=== PATIENT | female | born 1990 | race Caucasian/White ===

== ENCOUNTER 2018-11-10 22:17 | Emergency (ER) | payer OTHER ==
[~2018-11-10] VITALS: Ht 193 cm; Wt 90.7 kg
--- NOTE | 2018-11-10 22:26 | NUR ---
ED Nurse Note: pt walked in due to cough x 1 month and runny nose and earache. Pt is AO x 4times, VSS, on room air no distress. ANGIED seen Pt at bedside.
[2018-11-10] MEDS ORDERED: RISPERDAL1 MG PO (22:30)
[2018-11-10] MEDS ORDERED: PAXIL10 MG ORAL (22:30)
[2018-11-10 22:57] VITALS: BP 123/82
[2018-11-10] MEDS ORDERED: PROMETHAZINE-C118 M1 ORAL (22:57)
[2018-11-10] MEDS ORDERED: AMOXICILLIN500 MG ORAL (22:57)
[2018-11-10 23:04] VITALS: BP 123/82
--- NOTE | 2018-11-10 23:05 | NUR ---
ER DISCHARGE NOTE: Patient is cleared to be discharged per ERMD, pt is aox4, on room air, with stable vital signs. pt was given dc and prescription instructions, pt was able to verbalize understanding, pt id band removed without complications. pt is able to ambulate with steady gait. pt took all belongings.
--- NOTE | 2018-11-11 03:00 | Emergency Room Report ---
History of Present Illness General Chief Complaint: Upper Respiratory Illness Source: Patient Present Illness HPI 28-year-old female presents ED for evaluation. States she's been experiencing cough runny nose and congestion 1 month. Cough is productive with greenish phlegm. States she's tried [id number] medications without relief. States is been no improvement in symptoms and getting worse. Denies fevers or chills. Denies sick contacts or recent travel. No other aggravating relieving factors. Denies any other associated symptoms Allergies: Coded Allergies: No Known Allergies (Unverified , 11/10/18) Patient History Past Medical History: psych hx Past Surgical History: none Pertinent Family History: none Social History: Denies: smoking, alcohol use, drug use Last Menstrual Period: oct Now: No : 0 Para: 0 Immunizations: UTD Reviewed Nursing Documentation: PMH: Agreed; PSxH: Agreed Nursing Documentation-PM Past Medical History: No History, Except For History Of Psychiatric Problem: Yes - depression Review of Systems All Other Systems: negative except mentioned in HPI Physical Exam Vital Signs Date Time Temp Pulse Resp B/P (MAP) Pulse Ox O2 Delivery O2 Flow Rate FiO2 11/10/18 22:25 98.2 100 16 110/82 95 Room Air Sp02 EP Interpretation: reviewed, normal General Appearance: no apparent distress, alert, GCS 15, non-toxic Head: normocephalic, atraumatic Eyes: bilateral eye normal inspection, bilateral eye PERRL ENT: hearing grossly normal, normal pharynx, no angioedema, normal voice Neck: full range of motion, supple/symm/no masses Respiratory: chest non-tender, lungs clear, normal breath sounds, speaking full sentences Cardiovascular #1: regular rate, rhythm, no edema Cardiovascular #2: 2+ carotid (R), 2+ carotid (L), 2+ radial (R), 2+ radial (L) , 2+ dorsalis pedis (R), 2+ dorsalis pedis (L) Gastrointestinal: normal bowel sounds, non tender, soft, non-distended, no guarding, no rebound Rectal: deferred Genitourinary: normal inspection, no CVA tenderness Musculoskeletal: back normal, gait/station normal, normal range of motion, non- tender Neurologic: alert, oriented x3, responsive, motor strength/tone normal, sensory intact, speech normal Psychiatric: judgement/insight normal, memory normal, mood/affect normal, no suicidal/homicidal ideation Reflexes: 3+ bicep (R), 3+ bicep (L), 3+ tricep (R), 3+ tricep (L), 3+ knee (R) , 3+ knee (L) Skin: normal color, no rash, warm/dry, well hydrated Lymphatic: no adenopathy Medical Decision Making Diagnostic Impression: Primary Impression: Atypical pneumonia ER Course Hospital Course 28-year-old female presents ED complaining of runny nose, congestion and cough x1 month Differential diagnoses include: URI, pharyngitis, otitis media, asthma Clinical course Patient placed on stretcher. After initial history, physical exam reveals a female in no acute distress. Bilateral TM unremarkable. No pharyngeal erythema. No tonsillar exudates. No lymphadenopathy. lungs clear. abdomen soft. discussed findings with patient. Appears viral however given persistence of symptoms without improvement with [id number] medications consideration for bacterial superinfection. We'll treat as atypical pneumonia. I'll discharge with antibiotics. Safe for discharge with close outpatient follow-up. I'll provide PMD referrals Diagnosis - atypical pneumonia Stable and discharged home with Rx amoxicillin, promethazine/codeine. Instructed to followup with PMD. Return to ED if symptoms recur or worsen Last Vital Signs Date Time Temp Pulse Resp B/P (MAP) Pulse Ox O2 Delivery O2 Flow Rate FiO2 11/10/18 23:04 98.5 97 17 123/82 97 Room Air Status: improved Disposition: HOME, SELF-CARE Condition: Stable Scripts Codeine/Promethazine Hcl* (PROMETHAZINE-CODEINE SYRUP*) 118 Ml Syrup 5 ML ORAL Q6H PRN for For Cough, #118 ML 0 Refills Prov: Joss Sanches MD 11/10/18 Amoxicillin* (AMOXIL*) 500 Mg Capsule 500 MG ORAL THREE TIMES A DAY, #21 CAP Prov: Joss Sanches MD 11/10/18 Referrals: NOT CHOSEN IPA/,REFERRING [facility]mmy Vilchis [facility]. [facility] Patient Instructions: Community-Acquired Pneumonia, Adult, Pldt-er-Ucid Joss Sanches MD Nov 11, 2018 03:00
== END 2018-11-10 23:30 | disposition home or self-care (01) ==
LOC: EMR 22:45
DX: J18.9 Pneumonia, unspecified organism (principal)
CPT/HCPCS: 99282

== ENCOUNTER 2020-02-25 19:33 | Emergency (ER) | payer MEDICAID, OTHER ==
[~2020-02-25] VITALS: Ht 193 cm; Wt 84.8 kg
[~2020-02-25 19:33] MED LIST: AMOXICILLIN500 MG ORAL; PAXIL10 MG ORAL; PROMETHAZINE-C118 M1 ORAL; RISPERDAL1 MG PO
[2020-02-25 19:37] VITALS: BP 94/59
--- NOTE | 2020-02-25 19:48 | Emergency Room Report ---
History of Present Illness General Chief Complaint: Upper Respiratory Illness Source: Patient Present Illness HPI Disclaimer: Please note that this report is being documented using [employer] technology. This can lead to erroneous entry secondary to incorrect interpretation by the dictating instrument. HPI: 29-year-old otherwise healthy female presents for evaluation of cough. The patient states she has had a nonproductive cough for approximately 1 week with subjective fevers. Denies vomiting, diarrhea, headache, chest pain, palpitations, significant shortness of breath. Patient has been around large crowds recently. No known contact with COVID-19 positive persons. Denies history of asthma. She states she gets recurrent upper respiratory tract infections. Did not take any medications prior to arrival. PMH: Denied PSH: Denied Allergies: Denied Social Hx: Active tobacco user Allergies: Coded Allergies: No Known Allergies (Unverified , 02/25/20) COVID-19 Screening Contact w/high risk pt: No Recent Travel to affected area: No Experienced COVID-19 symptoms?: Yes COVID-19 symptoms experienced: Cough COVID-19 Testing performed STAPLER MACHINE: No Patient History Last Menstrual Period: na Nursing Documentation-PMH Past Medical History: No Stated History Review of Systems All Other Systems: negative except mentioned in HPI Physical Exam Vital Signs Date Time Temp Pulse Resp B/P (MAP) Pulse Ox O2 Delivery O2 Flow Rate FiO2 02/25/20 19:28 98.8 98 18 94/59 (71) 98 Room Air General: Awake and alert, no acute distress HEENT: NC/AT. EOMI. Cardiovascular: RRR. S1 and S2 normal. No murmur appreciated Resp: Normal work of breathing. No cough, wheezing or crackles appreciated Skin: Intact. No abrasions, laceration or rash over the exposed skin MSK: Normal tone and bulk. Moving all extremities. No obvious deformity. Neuro: Awake and alert. Mentating appropriately. Medical Decision Making Diagnostic Impression: Primary Impression: Lower respiratory tract infection Additional Impression: Suspected 2019 novel coronavirus infection ER Course There is a 29-year-old female presenting for evaluation of cough and subjective fevers 1 week duration. Differential includes was not limited to viral respiratory syndrome, pneumonia, bronchitis, COVID-19 infection to name a few. X-ray is obtained to evaluate for pneumonia but no obvious infiltrate was identified. The patient is well-appearing with stable vital signs and no respiratory distress. I am concerned that the patient has been out in public recently in large crowds and may have contracted coronavirus. I will for her to outpatient testing. Also prescribe antitussive medication albuterol inhaler. She is stable for outpatient follow-up. I instructed the patient to self isolate and discussed reasons to return to the emergency department as well as need to follow-up with PMD. She was provided with resources on outpatient coronavirus testing. She understands and agrees with treatment plan was discharged home. Chest X-Ray Diagnostic Results Chest X-Ray Diagnostic Results : Chest X-Ray Ordered: Yes # of Views/Limited/Complete: 1 View Indication: Shortness of Breath EP Interpretation: Yes Interpretation: no consolidation, no effusion, no pneumothorax, no acute cardiopulmonary disease Impression: No acute disease Electronically Signed by: Electronically signed by Dr. Alton Thomas Last Vital Signs Date Time Temp Pulse Resp B/P (MAP) Pulse Ox O2 Delivery O2 Flow Rate FiO2 02/25/20 19:37 98 18 Room Air 02/25/20 19:37 98.8 94/59 98 Disposition: HOME, SELF-CARE Condition: Stable Scripts Albuterol Sulfate (VENTOLIN HFA) 18 Gm Hfa.aer.ad 1 PUFF INH EVERY 6 HOURS, #18 GM 0 Refills Prov: Alton Thomas MD 02/25/20 Promethazine Hcl* (PHENERGAN*) 25 Mg Tablet 25 MG ORAL Q6H, #15 TAB 0 Refills Prov: Alton Thomas MD 02/25/20 Alton Thomas MD Feb 25, 2020 19:48
[2020-02-25] MEDS ORDERED: VENTOLIN HFA18 GM INH (20:13)
[2020-02-25] MEDS ORDERED: PHENERGAN25 M1 ORAL (20:13)
[2020-02-25 20:15] VITALS: BP 100/60
--- NOTE | 2020-02-26 12:53 | Diagnostic Imaging Report ---
Indication: Cough Technique: XRAY Chest 1v Comparison: None Findings: Heart size and mediastinal contours are within normal limits for AP technique. There is no focal airspace consolidation, pneumothorax or pleural effusion. Mild scoliosis. Osseous structures demonstrate no acute abnormality. Impression: No radiographic evidence of acute cardiopulmonary disease. No focal airspace consolidation.
== END 2020-02-25 20:15 | disposition home or self-care (01) ==
LOC: EDBD 19:33 → MERGE 20:15 → EMR 20:15
DX: J22 Unspecified acute lower respiratory infection (principal); R05 Cough
CPT/HCPCS: 71045; Z7502; 99283

== ENCOUNTER 2020-05-27 15:40 | Emergency (ER) | payer OTHER ==
[~2020-05-27] VITALS: Ht 193 cm; Wt 86.2 kg
[~2020-05-27 15:40] MED LIST changes: +PHENERGAN25 M1 ORAL; +VENTOLIN HFA18 GM INH
[2020-05-27 15:52] VITALS: BP 107/63
--- NOTE | 2020-05-27 16:33 | Emergency Room Report ---
History of Present Illness General Chief Complaint: Pain Present Illness HPI 30-year-old female presents to the emergency department complaining of 6 out of 10 severity episodic pain in the left side of the neck x4 years. Patient reports that over the course of the last 2 months she is noticing it more f requently. Patient describes strong correlation with when she drinks and smokes. Patient states she has since ceased smoking as she believes it may be contributing to her symptoms. She denies fevers or chills. She denies pain with swallowing. She denies noticeable swelling. She denies neck stiffness. She denies headache. She denies personal or familial hx of Cancers or thyroid disorders. Pt. denies frequent infections or weak immune system. Allergies: Coded Allergies: No Known Allergies (Unverified , 11/10/18) COVID-19 Screening Contact w/high risk pt: No Experienced COVID-19 symptoms?: No COVID-19 Testing performed BUFF WHEEL FABRICATOR: No Patient History Past Medical History: see triage record Past Surgical History: none Pertinent Family History: none Last Menstrual Period: 05/19/20 Now: No Reviewed Nursing Documentation: PMH: Agreed; PSxH: Agreed Nursing Documentation-PMH Past Medical History: No Stated History Hx Cardiac Problems: No Hx Hypertension: No Hx Pacemaker: No Hx Asthma: No Hx COPD: No Hx Diabetes: No Hx Cancer: No Hx Gastrointestinal Problems: No Hx Dialysis: No History Of Psychiatric Problem: No Hx Neurological Problems: No Hx Cerebrovascular Accident: No Hx Seizures: No Review of Systems All Other Systems: negative except mentioned in HPI Physical Exam Vital Signs Date Time Temp Pulse Resp B/P (MAP) Pulse Ox O2 Delivery O2 Flow Rate FiO2 05/27/20 15:43 98.2 112 16 107/63 (78) 98 Sp02 EP Interpretation: reviewed, normal General Appearance: no apparent distress, alert, GCS 15, non-toxic Head: normocephalic, atraumatic Eyes: bilateral eye normal inspection, bilateral eye PERRL ENT: hearing grossly normal, normal voice Neck: full range of motion, other - Pt. has tenderness to palpation to the upper left scm, there are no palpable LAD, there is no palpable masses, no skin color changes. No bony ttp. NO stridor, no bruits Respiratory: chest non-tender, lungs clear, normal breath sounds, no respiratory distress, no accessory muscle use, no wheezing, speaking full sentences Cardiovascular #1: regular rate, rhythm Musculoskeletal: back normal, normal range of motion, gait/station normal, non- tender Neurologic: alert, motor strength/tone normal, oriented x3, sensory intact, responsive, speech normal Psychiatric: judgement/insight normal Skin: other - Pt. has tenderness to palpation to the upper left scm, there are no palpable LAD, there is no palpable masses, no skin color changes. No bony ttp. Lymphatic: no adenopathy Medical Decision Making PA Attestation Dr. Villafana is my supervising Physician whom patient management has been discussed with. Diagnostic Impression: Primary Impression: Nonspecific pain in the neck region ER Course 30-year-old female presents to the emergency department complaining of 6 out of 10 severity episodic pain in the left side of the neck x4 years. Patient reports that over the course of the last 2 months she is noticing it more frequently. Patient describes strong correlation with when she drinks and smokes. Patient states she has since ceased smoking as she believes it may be c ontributing to her symptoms. She denies fevers or chills. She denies pain with swallowing. She denies noticeable swelling. She denies neck stiffness. She denies headache. She denies personal or familial hx of Cancers or thyroid disorders. Pt. denies frequent infections or weak immune system. Ddx considered but are not limited to dissection, thyroiditis, lymphadenopathy, BUFF WHEEL FABRICATOR, strep, abscess just to name a few Vital signs: are WNL, pt. is afebrile. H&PE are most consistent with Episodic pain in the neck region on the left side. unable to illicit on palpation, No swelling or palpable mass. NO evidence of infection, FROM of Neck, no constitutional symptoms or personal/familial history of thyroid disorder. Patient is a current smoker so risk factor for neoplasm is present. Patient is nontoxic in appearance and in no acute distress. No evidence of acute impending airway compromise. dissection very unlikely given lack of risk factors and age. ORDERS: none required at this time, the diagnosis is clinical ED INTERVENTIONS: None required at this time. D/w pt. that an emergent condition is not identifiable based on her current presentation. I d/w pt. that this could represent cancer or thyroid disorder and needs to be followed up and evaluated by the appropriate specialists. D/w pt. that this needs to be done on an urgent basis until cancer can be excluded. -I do not identify an emergent condition at this time. With current presentation, pt. is stable for close outpatient follow up and conservative treatment. D/w pt. to return promptly to ED with worsening or new symptoms.- Pt. verbalizes' understanding and agreement with proposed treatment plan. DISCHARGE: At this time pt. is stable for d/c to home. Will provide printed patient care instructions, and any necessary prescriptions. Care plan and follow up instructions have been discussed with the patient prior to discharge. Last Vital Signs Date Time Temp Pulse Resp B/P (MAP) Pulse Ox O2 Delivery O2 Flow Rate FiO2 05/27/20 15:52 98.2 79 16 107/63 98 Disposition: HOME, SELF-CARE Condition: Stable Scripts Ibuprofen* (MOTRIN*) 600 Mg Tablet 600 MG ORAL THREE TIMES A DAY, #20 TAB Prov: Briana Perdomo 05/27/20 Referrals: NON PHYSICIAN (PCP) Ammy Lucio [facility] [place] Patient Instructions: Medical Screening Exam, Pain Without a Known Cause Additional Instructions: Take medications as directed. ~ ~ An emergent medical condition has not been identified based on this patients presentation, exam and any necessary testing/imaging. The patient is determined to be stable for outpatient follow-up and management of symptoms by a primary care provider. Follow up with an ENT ( ear, nose, THROAT) Specialist 3-5 days, --Please review list of primary care clinics, if you do not already have a primary care provider Return sooner to ED if new symptoms occur, or current symptoms become worse. - Please note that this Emergency Department Report was dictated using [employer] technology software, occasionally this can lead to erroneous entry secondary to interpretation by the dictation equipment. Briana Perdomo May 27, 2020 16:33
[2020-05-27] MEDS ORDERED: IBUPROFEN600 M1 ORAL (16:34)
[2020-05-27 16:40] VITALS: BP 107/63
== END 2020-05-27 17:01 | disposition home or self-care (01) ==
LOC: EMR 16:00
DX: M54.2 Cervicalgia (principal)
CPT/HCPCS: 99282